=== PATIENT | female | born 1975 ===

== ENCOUNTER 2018-01-22 06:10 | Day surgery (SDC) | payer OTHER ==
[~2018-01-22 06:10] MED LIST: BYDUREON P2 MG/0.65; CRESTOR20 MG PO; FORTAMET1000 MG PO; IRBESARTAN75 MG PO; TOUGEO; TRILIPIX135 MG PO; ZANTAC300 MG PO
[2018-01-22] MEDS ORDERED: ZITHROMAX200 MG PO (09:03)
[2018-01-22] MEDS ORDERED: NAPROXEN250 MG PO (09:03)
== END 2018-01-22 15:04 | disposition home or self-care (01) ==
LOC: CIR.AMB 06:10
DX: N72 Inflammatory disease of cervix uteri (principal)